=== PATIENT | male | born 1950 | race Caucasian/White ===

== ENCOUNTER 2016-12-27 06:45 | Day surgery (SDC) | payer MEDICARE, OTHER ==
[~2016-12-27 06:45] MED LIST: Lactated Ringers 1,000 ML IV SCH
[2016-12-27] MEDS ORDERED: Propofol 200 MG/20 ML SDV IV ONE (08:00)
[2016-12-27] MEDS ORDERED: Midazolam 1 MG/ML 2 ML SDV IV ONE (08:00)
--- NOTE | 2016-12-27 08:30 | PCM.OPNOTE ---
- General Post-Op/Procedure Note Date of Surgery/Procedure: 12/27/16 Operative Procedure(s): c scope Findings: normal exam Pre Op Diagnosis: screening Post-Op Diagnosis: normal scope Primary Surgeon: Mac Sanchez Anesthesia Provider: Quyen Ochoa Pathology: none Complications: None Condition: Good Free Text/Narrative:: see dictation
--- NOTE | 2016-12-27 09:02 | PREOP ---
ADMISSION DATE: 12/27/2016 PREOPERATIVE DIAGNOSIS: Need for screening colonoscopy. HISTORY OF PRESENT ILLNESS: This is a 66-year-old white male who is referred for screening C-scope. He is essentially without complaints. By report, his last colonoscopy was normal. He has a negative family history as well. SOCIAL HISTORY: The patient does smoke. He has a [id number] smoking history. He denies any alcohol use. PAST MEDICAL HISTORY: Significant for seasonal allergies. PAST SURGICAL HISTORY: Significant for pyloric myotomy. He has had shoulder, ankle, and leg surgeries. MEDICATIONS: 1. Trazodone 150 mg at bedtime. 2. Flonase 16 grams daily. 3. As well as vitamin C. ALLERGIES: He reports no known drug allergies. REVIEW OF SYSTEMS: CONSTITUTIONAL: The patient denies any generalized constitutional issues. PULMONARY: Denies any pulmonary. HEENT: Significant for hearing loss. CARDIAC: Negative. ABDOMEN: Negative. NEUROLOGIC: He does say he does get what he "calls a TIA," when he gets up quickly. Otherwise, review of systems was negative. PHYSICAL EXAMINATION: VITAL SIGNS: His vital signs were reviewed. They are stable. HEENT: Grossly within normal limits. LUNGS: Clear to auscultation. HEART: Regular rate and rhythm. ABDOMEN: Soft and nontender. ASSESSMENT: A 66-year-old white male, for screening colonoscopy. Procedure and risks were explained to the patient, to include bleeding, infection, and perforation. The patient expresses understanding, and he asked us to proceed. /[id number] /MODL
[2016-12-27 09:10] VITALS: BP 132/79
--- NOTE | 2016-12-27 14:13 | OR ---
DATE OF OPERATION: 12/27/2016 SURGEON: Mac Sanchez MD PROCEDURE PERFORMED: Colonoscopy. PREOPERATIVE DIAGNOSIS: Need for screening C scope. POSTOPERATIVE DIAGNOSIS: Normal colon. INDICATIONS FOR PROCEDURE: This is a 66-year-old white male, who presents for followup screening colonoscopy. He was offered and accepted same. DESCRIPTION OF OPERATION: After an excellent IV sedation was administered, digital rectal exam was performed. No marked abnormality was noted. Flexible colonoscope was inserted and advanced to the cecum without difficulty. The prep was excellent. The following findings were noted. Ascending colon, unremarkable. Transverse colon, unremarkable. Descending colon, unremarkable. Sigmoid and rectum unremarkable. Colon was deflated. Scope was removed. RECOMMENDATIONS: The patient undergo a repeat colonoscopy in 10 years. /[id number] /SHARONDA
== END 2016-12-27 09:34 | disposition home or self-care (01) ==
LOC: FB.SDS 06:45
PROVIDERS: ATTEND Surgery
DX: Z12.11 Encounter for screening for malignant neoplasm of colon (principal); F17.210 Nicotine dependence, cigarettes, uncomplicated; Z98.890 Other specified postprocedural states; Z79.899 Other long term (current) drug therapy; J30.2 Other seasonal allergic rhinitis
CPT/HCPCS: 00810; 45378; J2250; J2704; J7120